=== PATIENT | female | born 1965 | race Asian ===

== ENCOUNTER 2016-12-26 14:30 | Outpatient (CLI) | payer OTHER | END 2016-12-26 19:44 | disposition home or self-care (01) | LOC: SMA 14:30 | DX: Z12.31 Encounter for screening mammogram for malignant neoplasm of breast (principal) | CPT/HCPCS: 77067; G0202 ==

== ENCOUNTER 2018-01-30 15:01 | Outpatient (CLI) | payer OTHER | END 2018-01-30 20:20 | disposition home or self-care (01) | LOC: SMA 15:01 | DX: Z12.31 Encounter for screening mammogram for malignant neoplasm of breast (principal) | CPT/HCPCS: 77067 ==

== ENCOUNTER 2019-09-04 15:04 | Outpatient (CLI) | payer OTHER | END 2019-09-04 17:58 | disposition home or self-care (01) | LOC: SMA 15:04 | DX: Z12.31 Encounter for screening mammogram for malignant neoplasm of breast (principal); N64.89 Other specified disorders of breast; N63.0 Unspecified lump in unspecified breast | CPT/HCPCS: 77067 ==

== ENCOUNTER 2021-02-24 14:49 | Outpatient (CLI) | payer OTHER | END 2021-02-24 21:06 | disposition home or self-care (01) | LOC: SMA 14:49 | DX: Z12.31 Encounter for screening mammogram for malignant neoplasm of breast (principal); N64.89 Other specified disorders of breast | CPT/HCPCS: 77067 ==

== ENCOUNTER 2023-08-03 14:44 | Outpatient (CLI) | payer OTHER | END 2023-08-03 18:28 | disposition home or self-care (01) | LOC: EEVIPCON 14:44 → SMA 14:44 | PROVIDERS: ATTEND Family Medicine | DX: Z12.31 Encounter for screening mammogram for malignant neoplasm of breast (principal) | CPT/HCPCS: 77067 ==